=== PATIENT | female | born 2000 | race African-American/Black ===

== ENCOUNTER 2024-08-01 10:46 | Emergency (ER) | payer OTHER, SELFPAY ==
--- OUTSIDE RECORDS SUMMARY | 2024-08-01 11:02 | XMS_ITS | Referral Summary ---
Author Organization [facility] [address] Address [address] [place] [address] Phone Care Team Providers Care Soa Integration Architect Name Role Phone James Evans MD Primary Care Provider Allergies No known active allergies Medications No known medications Active Problems Problem Noted Date Diagnosed Date Encounter for routine child health examination without abnormal findings 01/25/2018 History of allergic reaction 12/30/2016 Overview (12/30/2016): 09/01 Per dad she has had to go to ER 3 occassions in life (swollen tongue, facial swelling, difficulty breathing) refer to Dr. Arora. 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 Skin infection 12/30/2016 Overview (12/30/2016): 01/31 breast abscess bactrim/bactroban Encounters for administrative purposes 6 Overview (09/22/2016): Sports physical Immunizations Name Administration Dates Next Due DTaP, Unspecified 03/17/2005, 2,2000, 001,2000 Hep B, Unspecified 04/14/2001,2000, 000 HiB 09/17/2001, 1,2000, 001 IPV 03/17/2005, 2,2000, 001 MMR 03/17/2005,09/17/2001 Meningococcal MCV4P (Menactra) 01/25/2018,2014 Pneumococcal Conjugate, Unspecified 11/18,2000,2000, 001 Tdap 10/21/2011 Social History Tobacco Use Types Packs/Day Years Used Date Smoking Tobacco: Never Smokeless Tobacco: Never Tobacco Cessation:Counseling Given: Not Answered Personal Safety Answer Date Recorded Getting School Help Needed Not on file 06/23 Comments No Sex and Gender Information Value Date Recorded Sex Assigned at Not on file 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 Gender Identity Not on file Sexual Orientation Not on file Occupation Industry Job Start Date Job End Date [employer] Not on file Not on file Not on file Last Filed Vital Signs Vital Sign Reading Time Taken Comments Blood Pressure 118/64 04/20/2022 9:18 AM CDT Pulse 80 05/02/2021 8:28 AM MILK DELIVERY DRIVER Temperature 36.7 C (98 F) 05/02/2021 8:28 AM MILK DELIVERY DRIVER Respiratory Rate 16 05/02/2021 8:28 AM MILK DELIVERY DRIVER Oxygen Saturation 98% 05/02/2021 8:28 AM MILK DELIVERY DRIVER Inhaled Oxygen Concentration - - Weight 68.5 kg (151 lb) 04/20/2022 9:18 AM CDT Height 160 cm (5' 3 ) 04/20/2022 9:18 AM CDT Body Mass Index 26.75 04/20/2022 9:18 AM CDT Plan of Treatment Not on file Procedures Procedure Name Priority Date/Time Associated Diagnosis Comments PAP WITH REFLEX TO HIGH RISK HPV Routine 04/20/2022 10:47 AM CDT Screening for malignant neoplasm of cervix N. GONORRHOEAE/C. TRACHOMATIS AMPLIFICATION Routine 04/20/2022 9:55 AM CDT Screen for sexually transmitted diseases from Last 3 Months or Most Recently Relevant to Health Maintenance Results * Pap with reflex to High Risk HPV (04/20/2022 10:47 AM CDT) Thin prep (Pap test) 04/20/2022 10:47 AM CDT 04/20/2022 10:47 AM CDT Narrative PATHOLOGY CH - 04/25/2022 3:47 PM MILK DELIVERY DRIVER [facility] Department of Pathology [address] [place] [id number] Final Report Note to Patients: This report may contain a detailed description of human tissue sent by a health care provider to the laboratory for pathologic evaluation. The content of this report is essential for diagnosis and may provide important critical findings. This information may be unfamiliar to patients to review without a medical professional present. It is advised that the patient review this report in the presence of a health care provider who can answer questions and explain the details. Patient Name: SHAMEKA FISCHER Address: [address] [place] [phone] Gender: F : 2000 (Age: 21) Service: Laboratory Location: Hospital #: [id number] Patient Type: SPECIMEN Taken: 04/20/2022 Received: 04/20/2022 Accessioned:: 04/21/2022 Reported: 04/25/2022 Physician(s): Lizette Davis D.O. Diagnosis: Source of Specimen: Imaged Thinprep Pap Test w/ Reflex HPV - Transition Advisor Cytologic Material Specimen Adequacy: - Satisfactory for evaluation; endocervical/transformation zone component present General Category: - Negative for intraepithelial lesion or malignancy Interpretation/Results: - Numerous RBC's RONNY Beltran(ASCP) Report Electronically Reviewed and Signed Out By RONNY Beltran(ASCP) 04/25/2022 15:47:03Specimen(s) Received: A: Imaged Thinprep Pap Test w/ Reflex HPV - Transition Advisor Cytologic Material Clinical History: The Pap test is a screening test used to aid in the detection of cervical cancer and its precursors. It should not be the sole means by which malignant and premalignant lesions are diagnosed. Both false negative and false positive results may occur. It also has poor sensitivity for the detection of endometrial lesions and should not be used to evaluate suspected endometrial abnormalities. For these reasons it is most important to obtain Pap tests at regular intervals. The performance characteristics of some immunohistochemical stains, fluorescence in-situ hybridization tests and immunophenotyping by flow cytometry cited in this report (if any) were determined by the Surgical Pathology Department at [facility] as part of an ongoing quality auditor program and in compliance with federally mandated regulations drawn from the Clinical Laboratory Improvement Act of 1988 (CLIA '88). Some of these tests rely on the use of analyte specific reagents and are subject to specific labeling requirements by the US Food and Drug Administration. Such diagnostic tests may only be performed in a facility that is certified by the Department of Health and Human Services as a high complexity laboratory under CLIA '88. The FDA has determined that such clearance or approval is not necessary. This test is used for clinical purposes. It should not be regarded as investigational or for research. Nevertheless, federal rules concerning the medical use of analyte specific reagents require that the following disclaimer be attached to the report: This test was developed and its performance characteristics determined by the Surgical Pathology Department [facility]. It has not been cleared or approved by the U. S. Food and Drug Administration. Gianna Morin DO LAB CYTOLOGY ORDERABLES Final Result [facility] [address] [place] [address] * N. gonorrhoeae/C. trachomatis Amplification Thin prep (04/20/2022 9:55 AM CDT) C. trachomatis Not detected Not detected [facility] N. gonorrhoeae Not detected Not detected MINI [facility] Comment: Testing performed by the [facility] Laboratory. This assay detects Chlamydia trachomatis and Neisseria gonorrhoeae by nucleic acid amplification testing (NAAT). This test is approved by the [facility] Food and Drug Administration and the performance characteristics have been verified by the laboratory. The performance characteristics of this test have not been evaluated in women or individuals less than 16 years of age. Thin prep 04/20/2022 9:55 AM CDT 04/20/2022 4:18 PM CDT Gianna Morin DO LAB MICROBIOLOGY - GENE RAL ORDERABLES Final Result Performing Organization Address City/[facility]/ZIP Co de Phone Number [facility] [address] [place] [address] from Last 3 Months or Most Recently Relevant to Health Maintenance Insurance [facility] PLUS [facility] PL[facility] Member Subscriber Plan / Payer (Ef fective 2019-Present) Name:Shameka Fischer Relation to Subscriber:Child Name:MED FISCHER Date of :1974 (Home) Address: [address] [place] [address] [place] [address] Payer ID:[id number] (NAIC) Type:[facility] HMO/PPO Address: [place] [phone] Care Teams Soa Integration Architect Relationship Specialty Start Date End Date James Evans MD [address] [place] [address] PCP - General 01/27/16
--- OUTSIDE RECORDS SUMMARY | 2024-08-01 11:02 | XMS_ITS | Clinical Summary ---
Author Organization [facility] [address] Address [address] [place] [address] Phone Care Team Providers Care Input Output Clerk Name Role Phone James Evans MD Primary [...] Dr. Arora. 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 Gender Identity Not on file Sexual Orientation Not on file Occupation Industry Job Start Date Job End Date [employer] Not on file Not on file Not on file Obstetrics History Para Term AB IAB SAB Ectopic Multiple Livin g Live Births 0 0 0 0 0 0 0 0 0 0 0 Last Filed Vital Signs Vital Sign Reading Time Taken Comments Blood Pressure 118/64 04/20/2022 9:18 AM CDT Pulse 80 05/02/2021 8:28 AM WASHROOM OPERATOR Temperature 36.7 C (98 F) 05/02/2021 8:28 AM WASHROOM OPERATOR Respiratory Rate 16 05/02/2021 8:28 AM WASHROOM OPERATOR Oxygen Saturation 98% 05/02/2021 8:28 AM WASHROOM OPERATOR Inhaled Oxygen Concentration - - Weight 68.5 kg (151 lb) 04/20/2022 9:18 AM CDT Height 160 cm (5' 3 ) 04/20/2022 9:18 AM CDT Body Mass Index 26.75 04/20/2022 9:18 AM CDT Plan of Treatment Health Maintenance Due Date Last Done Comments Depression Screening 2000 Hepatitis C Screening 2000 Varicella Vaccines (1 of 2 - 13+ 2-dose series) 2013 HPV Vaccines (1 - 3-dose series) 2015 DTaP/Tdap/Td Vaccine (7 - Td or Tdap) 10/20/2021 10/21/2011, 03/17/2005, 09/17/2001, Additional history exists Cervical Cancer Screening 04/20/2023 04/20/2022 Chlamydia and Gonorrhea (GC/ CT) Screening 04/20/2023 04/20/2022 Regular Well Visit/Exam 18-64 04/20/2023 04/20/2022 Influenza Vaccine (#1) 2024 Hepatitis B Screening Completed 04/14/2001 , 2000, 2000 Pneumococcal vaccine <65 Completed 002, 2000, 2000, Additional history exists Procedures Procedure Name Priority Date/Time Associated Diagnosis [...] Narrative PATHOLOGY CH - 04/25/2022 3:47 [address] OPER[address] [facility] Department of Pathology [address] [place] [id number] Final Report Note to Patients: This [...] the details. Patient Name: SHAMEKA FISCHER Address: [facility] [address], [place] [address] Gender: F : 2000 (Age: 21) Service: Laboratory [id number] Patient Type: SPECIMEN Taken: 04/20/2022 Received: 04/20/2022 Accessioned:: 04/21/2022 Reported: 04/25/2022 Physician(s): Lizette Davis D.O. Diagnosis: Source of Specimen: Imaged Thinprep Pap Test w/ Reflex HPV - Director Of Operations For Therapy Cytologic Material Specimen Adequacy: - Satisfactory for evaluation; endocervical/transformation zone component present General Category: - Negative for intraepithelial lesion or malignancy Interpretation/Results: - Numerous RBC's RONNY Beltran(ASCP) Report Electronically Reviewed and Signed Out By RONNY Beltran(ASCP) 04/25/2022 15:47:03Specimen(s) Received: A: Imaged Thinprep Pap Test w/ Reflex HPV - Director Of Operations For Therapy Cytologic Material Clinical History: The Pap test [...] determined by the Surgical Pathology Department at [facility] as part of an ongoing air quality engineer program and in compliance with federally mandated [...] characteristics determined by the Surgical Pathology Department [facility]. It has not been cleared or approved by the U. S. Food and Drug Administration. Gianna Morin DO LAB CYTOLOGY ORDERABLES Final Result PATHOLOGY [address] [place] [address] * N. gonorrhoeae/C. trachomatis Amplification Thin prep (04/20/2022 9:55 AM CDT) C. trachomatis Not detected Not detected [facility]I CALLE N. gonorrhoeae Not detected Not detected [facility] Comment: Testing performed by the [facility] Laboratory. This assay detects Chlamydia trachomatis and Neisseria gonorrhoeae by nucleic acid amplification testing (NAAT). This test is approved by the [facility] Food and Drug Administration and the performance characteristics have been verified by the laboratory. The performance characteristics of this test have not been evaluated in women or individuals less than 16 years of age. Thin prep 04/20/2022 9:55 AM CDT 04/20/2022 4:18 PM CDT Gianna Morin DO LAB MICROBIOLOGY - GENE RAL ORDERABLES Final Result Performing Organization Address City/State/[facility] Co de Phone Number [facility] [address] Department [place] [address] from Last 3 Months or Most Recently Relevant to Health Maintenance Insurance [facility] CHO[facility] PLUS [facility] PLUS [facility] PLUS Care Teams Input Output Clerk Relationship Specialty Start Date End Date James Evans MD [address] [place] [address] PCP - General 01/27/16
[2024-08-01 11:20] VITALS: BP 112/70; PULSE 94; RESP 20; TEMP 37.2; O2SAT 100
--- NOTE | 2024-08-01 12:40 | ED_ITS ---
HPI - URI/Sore Throat General Chief Complaint: Upper Respiratory Infection Stated Complaint: throat Time Seen by Provider: 08/01/24 12:30 Source: patient, RN notes reviewed and old records reviewed Mode of arrival: ambulatory Limitations: no limitations History of Present Illness HPI Narrative: 24 year old female who presents to [facility] care with complaints of scratchy sore throat, nasal congestion and drainage with headache since yesterday, Patient reports no know fevers, chills or body aches or any fevers. Patient reports that she has been using salt water gargles for her throat discomfort.Patient reports no known recent ill contacts. MD elicited complaint: sore throat Onset (ago): day(s) (since yesterday) Pain scale (0-10): 5 Able to tolerate fluids by mouth: Yes Treatments prior to arrival: other (salt water gargles) Related Data Home Medications ?Medication ?Instructions ?Recorded ?Confirmed ?Last Taken ?Type No Home Medications 08/01/24 08/01/24 Unknown History Allergies Allergy/AdvReac Type Severity Reaction Status Date / Time No Known Allergies Allergy Verified 08/01/24 11:56 Review of Systems Review of Systems: CONSTITUTIONAL: Denies malaise, chills, sweats, or fever. EYES: Denies visual changes, redness, or discharge. ENT: Reports rhinorrhea, congestion, sinus pain,no otalgia and scratchy sore throat. CARDIOVASCULAR: Denies chest pain, palpitations, or edema. RESPIRATORY: Reports no cough.? Denies dyspnea. GASTROINTESTINAL: Denies abdominal pain, nausea, vomiting, diarrhea SKIN: Denies rash or itching. MUSCULOSKELETAL: Denies myalgia. NEUROLOGIC:reports headache. All systems reviewed & are unremarkable except as noted in HPI and below PMFSH Past Medical History Medical History (Updated 08/03/24 @ 15:13 by Ronda Garner NP) No pertinent past medical history Surgical History Surgical History (Updated 08/03/24 @ 15:09 by Ronda Garner NP) No history of previous surgery Social History Social History (Updated 08/03/24 @ 15:07 by Ronda Garner NP) Smoking status: Never smoker Alcohol intake: never Substance use type: does not use Gender identity (if verbalized by the patient): Female Comments At time of signature, agree with nursing past medical, surgical, social and family history. There is no relevant family history pertinent to the presenting complaint Exam Narrative: GENERAL: Well-appearing, well-nourished, and in no acute distress. HEAD: Normocephalic EYES: PERRLA, conjunctivae clear ENT: Nares clear, turbinates edematous and erythematous, clear discharge, sinus pressure headache.. Mucous membranes moist. TM pearly lindsay with dull light reflex bilaterally; no tragal tenderness. Oropharynx erythematous without lesions. Tonsils not enlarged and without exudate, no drooling, no hoarseness, no trismus, uvula midline.post nasal drainage NECK: Supple. No lymphadenopathy CHEST: Clear to auscultation, breath sounds equal. No wheezing, rhonchi, rales, or stridor. No respiratory distress, speaks in full sentences.no cough noted SAO2 100% on room air HEART: Regular rate and rhythm. No murmur heard. SKIN: Warm, dry, no rash. NEURO: Alert and oriented x3. PSYCH: Normal mood and affect Course Course Emergency Course: Patient is aware of diagnosis, understands and agrees to treatment plan.? Antic ipatory guidance given.? Patient agrees to follow-up as directed and is aware of reasons to seek care at the emergency department. Portions of this record may have been created with voice recognition software Level of Care: Express Care Visit Vital Signs Vital signs: Vital Signs Temperature 37.2 C 08/01/24 11:20 Pulse Rate 94 08/01/24 11:20 Respiratory Rate 20 08/01/24 11:20 Blood Pressure 112/70 08/01/24 11:20 Pulse Oximetry 100 08/01/24 11:20 Oxygen Delivery Room Air 08/01/24 11:20 Temperature 37.2 C 08/01/24 11:20 Pulse Rate 94 08/01/24 11:20 Respiratory Rate 20 08/01/24 11:20 Blood Pressure 112/70 08/01/24 11:20 Pulse Oximetry 100 08/01/24 11:20 Oxygen Delivery Room Air 08/01/24 11:20 Reviewed MDM - URI/Sore Throat MDM Narrative Medical decision making narrative: Differential diagnosis considered: Gonzáles virus, strep pharyngitis, allergic rhinitis, upper respiratory tract infection, sinusitis, rhinosinusitis, nasopharyngitis. viral pharyngitis, otitis media, otitis externa, pneumonia, bronchitis, viral cough syndrome, viral syndrome, and influenza.? Exam findings show no acute concerns or changes; patient is non-toxic appearing and is in no distress.? Patient is appropriate for outpatient treatment and follow-up. Differential Diagnosis Differential diagnosis: Likely upper respiratory infection, sinusitis, viral infection, pharyngitis and other (strep pharyngitis) Lab Data Attestation: I reviewed the patient's lab results. Lab results narrative: Influenza A negative, Influenza B negative, Strep screen negative, culture sent, COVID antigen negative. Labs: Lab Results 08/01/24 Range/Units 11:40 POC Influenza A Ag Negative (Negative) POC Influenza B Ag Negative (Negative) POC SARS CoV-2 Ag Negative (Negative) POC Grp A Strep Screen Negative (Negative) reviewed Critical Care Time Critical Care Time Critical Care Time: No Discharge Plan Discharge Clinical Impression: Upper respiratory infection Qualifiers: URI type: unspecified URI Qualified Code(s): J06.9 - Acute upper respiratory infection, unspecified Pharyngitis Qualifiers: Pharyngitis/tonsillitis etiology: unspecified etiology Qualified Code(s): J02.9 - Acute pharyngitis, unspecified Patient Disposition: Home, Self-Care Condition: Stable Instructions: Antibiotic Form, Upper Respiratory Infection (ED) Additional Instructions: Increase fluids especially juices and water [id number] cough and cold medicine of your choice for your symptoms Zyrtec Claritin or Sabine daily Tylenol or ibuprofen for any fever pain heat to the face 20-30 minutes 4-6 times a day for pain Salt water gargles, throat lozenges or throat sprays as desired Your strep test today was negative. A throat culture will be sent to the laboratory for further testing. IF the test is positive, you will receive a phone call within 48 hours and an appropriate antibiotic will be initiated at that time. If your symptoms persist, change or worsen significantly before you can contact your personal physician then please, without delay, go to the emergency department for further evaluation. 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
[2024-08-01 12:53] LABS: EDCOVIDSCREEN Negative (Negative); EDINFLUASCREEN Negative (Negative); EDINFLUBSCREEN Negative (Negative); EDSTREPNEGPOS1 Negative (Negative)
== END 2024-08-01 13:15 | disposition home or self-care (01) ==
PROVIDERS: Emergency Provider Registered Nurse
DX: J06.9 Acute upper respiratory infection, unspecified (principal); Z20.822 Contact with and (suspected) exposure to COVID-19
CPT/HCPCS: 87081; 87426; 87804; 87880; 99203; G0463